=== PATIENT | male | born 1965 | race Caucasian/White ===

== ENCOUNTER → 2016-08-11 | Outpatient (CLI) | payer BC, MEDICARE ==
--- NOTE | 2016-08-07 11:15 | NUR ---
Cancel CTR for 08-11-16. Phone call from Dr Mauricio, she is sending patient for cardiac clearance before surgery since patient has not followed up with recommendations from a hospital visit in April. Dr Mauricio is notifying the patient. Art Ch, and OR web specialist notified.
[~2016-08-11] MED LIST: AMIT50TA3 PO; CYCL-375 PO; DOCU-168 PO; ESOM40CA PO; IBUP-1546 PO; LISI1TAB11 PO; LORA0.5T2 PO; ORPH100T2 PO; OXYC15TA50 PO; PROPOFOL 500mg 50 ML IV ONE; SILD50TA PO; [UNRECOGNIZED DRUG - OTHER] IT
== END ==
LOC: EDSTATUS 07:30 → SCU 08:00
PROVIDERS: ATTEND Orthopaedic Surgery
DX: Z53.9 Procedure and treatment not carried out, unspecified reason (principal)